=== PATIENT | female | born 1950 | race Caucasian/White ===

== ENCOUNTER 2021-09-22 15:20 | Emergency (ER) | payer MEDICARE, SELFPAY ==
[2021-09-22] VITALS (28 sets, daily range): BP systolic 111–150; BP diastolic 49–77; PULSE 58–72; RESP 15–24; TEMP 36.7–37.1; O2SAT 92–99
--- NOTE | 2021-09-22 16:22 | W.ED.GENAD ---
Discharge Plan Disposition Patient Disposition: HOME Condition: Stable Discharge Details Clinical Impression: COVID-19 Primary Care Provider: Unknown,Unknown ED Provider: Kaveh Fischer Home Meds and New Rx's Prescriptions: No Action No Known Home Meds RF: 0 Discharge Instructions Instructions: COVID-19 (Coronavirus Disease 2019) (ED), Instructions for Self Monitoring Oxygen Saturation Additional Instructions: Please contact your primary care physician to arrange follow-up. Return to the ER for any worsening or new concerning symptoms. Discharge Data Discharge Date/Time-TO BE ENTERED AT DEPARTURE: 09/22/21 18:43 Medical Decision Making 71-year-old female Covid positive, symptoms started on 08/13/2021, seeking monoclonal antibody treatment. Patient meets age criteria for monoclonal antibody therapy. Patient provided [facility] fact sheet. Risk benefits were discussed with the patient and she provided informed consent to treat. Patient received antibody treatment - monitored and no adverse reaction. Patient discharged to followup with PCP. Finger pulse oximeter was provided with instructions on use. Usual and customary discharge instructions were reviewed with the patient and questions were addressed. HPI General Mode of arrival: ambulatory. Date/Time Provider Initiated Documentation: 09/22/21 15:37. Limitations to Documentation: no limitations. Information obtained by: patient. HPI Narrative: 71-year-old female presents with chief complaint of Covid positive and seeking monoclonal antibody treatment. Patient notes symptoms of cough and body aches that started on 09/13/2021. Patient notes she tested positive for Covid from [facility] testing site on 09/19. Patient is here seeking monoclonal antibody treatment. She notes she does not have a primary care physician. Patient denies shortness of breath. Related Data Home Medications Medication Instructions Recorded Confirmed Unknown [No Known Home Meds] 09/22/21 09/22/21 Allergies Allergy/AdvReac Type Severity Reaction Status Date / Time No Known Allergies Allergy Unverified 09/22/21 15:43 General Stated Complaint: RespSymp LUIS: 3 Review of Systems Constitutional Constitutional: Reports body ache(s) Respiratory Respiratory: Reports cough [facility] Active Problem List (Updated 09/22/21 @ 16:32 by Kaveh Fischer MD) COVID-19 (Acute) Social History Smoking/Tobacco Use Status: Never Smoking risk assessment performed?: Yes Alcohol Intake: never Substance use type: does not use Do you feel safe at home: Yes Do you feel safe in your relationship?: Yes Exam Const General: cooperative and no acute distress HENMT Mouth: moist mucous membranes Eyes Conjunctivae: normal conjunctivae Sclera: normal sclerae Neck Neck: trachea midline and supple Resp Auscultation: no rales, rhonchi and no wheezes Cardio Rate: regular rate and not tachycardic Rhythm: regular rhythm Skin General skin exam: no rashes or lesions noted Neuro General: patient alert, patient awake and tone normal Psych Appearance: grossly normal Mental Status: mental status grossly normal Speech and Movement: speech and movement normal Course Vital Signs Vital signs: Vital Signs Temperature 37.1 C 09/22/21 15:41 Pulse 62 09/22/21 15:41 Respiratory Rate 18 09/22/21 15:41 Blood Pressure 144/72 H 09/22/21 15:41 Pulse Oximetry 96 09/22/21 15:41 Temperature 37.1 C 09/22/21 15:41 Temperature Source Temporal Artery Scan 09/22/21 15:41 Pulse 62 09/22/21 15:41 Respiratory Rate 18 09/22/21 15:41 Blood Pressure 144/72 H 09/22/21 15:41 Blood Pressure Position Sitting 09/22/21 15:41 Pulse Oximetry 96 09/22/21 15:41 Oxygen Delivery Method Room Air 09/22/21 15:41 Oxygen Flow Rate 0 09/22/21 15:41 Pain Level 0 09/22/21 15:41
--- NOTE | 2021-09-22 16:27 | NUR.NOTE ---
Nursing Note: Referral given to Care Management to establish care, COVID+. with routine follow up, Jania Macedo
== END 2021-09-22 18:43 | disposition home or self-care (01) ==
PROVIDERS: Emergency Provider Student in an Organized Health Care Education/Training Program
DX: U07.1 COVID-19 (principal); R05.1 Acute cough; M79.10 Myalgia, unspecified site
CPT/HCPCS: 87798; 96365; 99284; 86618